=== PATIENT | male | born 1970 | race African-American/Black ===

== ENCOUNTER 2017-07-18 15:30 | Emergency (ER) | payer OTHER ==
[~2017-07-18] VITALS: Ht 193 cm; Wt 103.4 kg
[2017-07-18] MEDS ORDERED: MOTRIN800 MG PO (18:08)
[2017-07-18 20:10] VITALS: BP 117/65
== END 2017-07-18 20:19 | disposition home or self-care (01) ==
LOC: EME 15:30
PROC: 2W39X1Z Immobilization of Left Upper Extremity using Splint (ICD-10-PCS; principal; 2017-07-18)
DX: J10.1 Influenza due to other identified influenza virus with other respiratory manifestations (principal); S42.402A Unspecified fracture of lower end of left humerus, initial encounter for closed fracture; W01.0XXA Fall on same level from slipping, tripping and stumbling without subsequent striking against object, initial encounter; Y93.01 Activity, walking, marching and hiking; Y92.008 Other place in unspecified non-institutional (private) residence as the place of occurrence of the external cause; F17.200 Nicotine dependence, unspecified, uncomplicated
CPT/HCPCS: 73080; 87502; 99281; 99284

== ENCOUNTER 2017-09-23 09:13 | Emergency (ER) | payer SELFPAY ==
[~2017-09-23] VITALS: Ht 193 cm; Wt 103.6 kg
[~2017-09-23 09:13] MED LIST: MOTRIN800 MG PO
[2017-09-23 09:40] LABS: HEMATOCRIT 44.2 % (38.0-50.0); HEMOGLOBIN 15.8 G/DL (12.5-16.6); MCH 30.7 PG (29.0-34.0); MCHC 35.7 G/DL (30.0-36.0); MCV 85.8 FL (86-99); PLATELET COUNT 168 K/uL (156-360); RBC DIS.WIDTH-CV 13.2 % (11.8-14.6); RBC DIS.WIDTH-SD 41.2 % (39-53); RED BLOOD COUNT 5.15 M/uL (4.00-5.50); WHITE BLOOD COUNT 5.8 K/uL (4.1-10.2)
[2017-09-23 10:10] LABS: CHLORIDE 105 MEQ/L (99-109); CREATININE 0.9 MG/DL (0.6-1.3); GFR ESTIMATE (CALCULATED) > 59 mL/min/ (58.99-99999); GLUCOSE 122 mg/dL (70-99); SODIUM 140 MEQ/L (136-147); UREA NITROGEN (BUN) 10 mg/dL (9-23)
[2017-09-23 10:15] LABS: TROP-I INTERPRETATION NEGATIVE; TROPONIN-I < 0.01 ng/mL (0.0-0.30)
[2017-09-23 11:42] LABS: TROP-I INTERPRETATION NEGATIVE; TROPONIN-I < 0.01 ng/mL (0.0-0.30)
[2017-09-23 12:06] VITALS: BP 135/92
== END 2017-09-23 12:06 | disposition home or self-care (01) ==
LOC: EME 09:13
PROVIDERS: Nurse Practitioner Family
DX: R07.9 Chest pain, unspecified (principal); F17.200 Nicotine dependence, unspecified, uncomplicated
CPT/HCPCS: 71046; 80048; 84484; 85027; 93005; 99281; 99284